=== PATIENT | female | born 1975 | race Caucasian/White ===

== ENCOUNTER 2023-05-26 15:10 | Emergency (ER) | payer OTHER ==
[~2023-05-26] VITALS: Ht 165.1 cm; Wt 81.6 kg
[2023-05-26] MEDS ORDERED: ZOFRAN8 MG PO (20:21)
[2023-05-26] MEDS ORDERED: PEPCID AC20 MG PO (20:21)
== END 2023-05-26 20:36 | disposition home or self-care (01) ==
LOC: ER 15:10
DX: R10.84 Generalized abdominal pain (principal); F10.929 Alcohol use, unspecified with intoxication, unspecified